=== PATIENT | female | born 1965 | race Two or more races ===

== ENCOUNTER → 2024-05-18 | Outpatient (CLI) | payer BC, SELFPAY ==
--- NOTE | 2024-05-18 12:30 | XR_ITS ---
Examination: Breast ultrasound, unilateral, left complete Date and time of exam: May 18, 2024 1232 hours INDICATIONS: Outside mammogram January 07, 2024 11 mm focal asymmetry MLO view axillary portion left breast Technique: Real-time espinoza scale ultrasonographic imaging performed left breast including all 4 quadrants as well as nipple retroareolar and axillary region. Findings: 1:00 oval mass lobular margins 11 x 4 x 9 mm IMPRESSION: BI-RADS Category 3: Probably benign findings Recommend 1 additional 6 month left breast sonogram follow-up to document stability of 1:00 nodule described above
--- NOTE | 2024-05-18 13:00 | XR_ITS ---
Examination: Diagnostic digital mammography, unilateral, left Computer aided detection 3-D breast Tomosynthesis, unilateral Date and time of exam: May 14, 2024 1245 hours INDICATIONS: Outside mammogram January 07, 2024 11 mm asymmetry left MLO view Technique: Nonmagnified MLO, CC views of the left breast have been obtained, reconstructed from 3-D Tomosynthesis images. R2 computer aided detection program utilized for evaluation of suspicious masses and/or abnormal calcifications. 3-D Tomosynthesis images obtained. Findings: Scattered areas of fibroglandular density 1:00 probably benign intramammary lymph node Impression: BI-RADS category 3: Probably benign findings One additional 6 month left mammogram follow-up is needed
== END | disposition home or self-care (01) ==
PROVIDERS: Referring Provider Physician Assistant; Visit Provider Physician Assistant
DX: R92.332 Mammographic heterogeneous density, left breast (principal); N63.21 Unspecified lump in the left breast, upper outer quadrant
CPT/HCPCS: 76641; 77061; 77065; G0279